=== PATIENT | male | born 1975 | race Caucasian/White ===

== ENCOUNTER 2018-10-09 20:53 | Emergency (ER) | payer BC ==
[2018-10-09] MEDS ORDERED: NA CHLORIDE 0.9% 1,000 ML ONE (21:16)
[2018-10-09 21:21] LABS: Protime INR 0.97
[2018-10-09 21:25] LABS: Absolute Lymphocytes (CBC) 1.6 K/uL (0.7-4.9); Absolute Monocytes 0.7 K/uL (0.1-1.3); Basophils % 0.5 % (0-1.3); Eosinophils % 0.3 % (0-4.4); Hematocrit 47.7 % (39.6-49.0); Lymphocytes % 12.1 % (15.3-44.8); MPV 8.9 fL (7.6-11.3); Monocytes % 5.5 % (3.3-12.3); RBC Red Blood Cell Count 5.16 M/uL (4.33-5.43)
--- NOTE | 2018-10-09 21:35 | RAD REPORT ---
EXAM DESCRIPTION: RAD - Chest Single View - 10/09/2018 9:25 pm CLINICAL HISTORY: Cough;Dyspnea Chest pain. COMPARISON: No comparisons FINDINGS: Portable technique limits examination quality. The lungs are grossly clear. The heart is normal in size. No displaced fractures. IMPRESSION: No acute intrathoracic process suspected.
[2018-10-09 21:39] LABS: Barbiturates NEGATIVE (NEGATIVE); Benzodiazepines NEGATIVE (NEGATIVE); Cocaine NEGATIVE (NEGATIVE); METHAMPHETAM NEGATIVE (NEGATIVE); Methadone NEGATIVE (NEGATIVE); Opiates NEGATIVE (NEGATIVE); Phencyclidine NEGATIVE (NEGATIVE); THC Cannibis NEGATIVE (NEGATIVE)
[2018-10-09 21:50] LABS: Urine Blood NEGATIVE (NEG); Urine Glucose NEGATIVE (NEG); Urine Protein NEGATIVE (NEG); Urine Specific Gravity 1.005 (1.005-1.030)
[2018-10-09 21:53] LABS: ALT/SGPT 30 U/L (12-78); AST/SGOT 18 U/L (15-37); Albumin 4.4 g/dL (3.4-5.0); Alkaline Phosphatase 73 U/L (45-117); BUN Blood Urea Nitrogen 9 mg/dL (7-18); Bicarbonate 26 mmol/L (21-32); Bilirubin Direct < 0.1 mg/dL (0-0.2); Bilirubin Total 0.4 mg/dL (0.2-1.0); Glucose Level 88 mg/dL (74-106); Lipase 163 U/L (73-393); Magnesium 1.9 mg/dL (1.8-2.4); NT PRO-BNP 40 pg/mL (<125); Potassium 3.3 mmol/L (3.5-5.1); Protein, Total 7.7 g/dL (6.4-8.2); Sodium Level 138 mmol/L (136-145); Troponin (Emerg Dept Use Only) < 0.02 ng/mL (0.0-0.045)
--- NOTE | 2018-10-09 22:06 | ER ---
Nurse's Notes [facility] Name: Miguelito Petty Age: 42 yrs Sex: Male : 1975 Arrival Date: 10/09/2018 Time: 20:56 Bed 15 Private MD: Diagnosis: Palpitations;Tobacco abuse counseling;Tobacco use;Essential (primary) hypertension;Hypokalemia Presentation: 10/09 21:00 Presenting complaint: Patient states: heart racing and shortness of breath that started cc3 tonight. Transition of care: patient was not received from another setting of care. Onset of symptoms was October 09, 2018. Risk Assessment: Do you want to hurt yourself or someone else? Patient reports no desire to harm self or others. Initial Sepsis Screen: Does the patient meet any 2 criteria? No. Patient's initial sepsis screen is negative. Does the patient have a suspected source of infection? No. Patient's initial sepsis screen is negative. Care prior to arrival: None. 21:00 Method Of Arrival: Ambulatory cc3 21:00 Acuity: ANTOINETTE 3 cc3 Triage Assessment: 21:00 General: Appears in no apparent distress. uncomfortable, Behavior is calm, cooperative, cc3 appropriate for age. Pain: Denies pain. EENT: No signs and/or symptoms were reported regarding the EENT system. Neuro: Level of Consciousness is awake, alert, obeys commands, Oriented to person, place, time, situation, Appropriate for age. Cardiovascular: Reports palpitations, shortness of breath, Patient's skin is warm and dry. Respiratory: Reports shortness of breath at rest Onset: The symptoms/episode began/occurred suddenly, the patient has mild shortness of breath. GI: Abdomen is round non-distended. : No signs and/or symptoms were reported regarding the genitourinary system. Derm: No signs and/or symptoms reported regarding the dermatologic system. Musculoskeletal: Circulation, motion, and sensation intact. Range of motion: intact in all extremities. Historical: - Allergies: 21:00 No Known Allergies; cc3 - Home Meds: 21:00 Xanax Oral [Active]; cc3 - PMHx: 21:00 Anxiety; cc3 - PSHx: 21:00 throat polyps removal; cc3 - Immunization history:: Adult Immunizations up to date. - Social history:: Smoking status: Patient uses tobacco products, smokes one pack cigarettes per day. - Family history:: not pertinent. - Ebola Screening: : No symptoms or risks identified at this time. Screenin:00 Abuse screen: Denies threats or abuse. Denies injuries from another. Nutritional cc3 screening: No deficits noted. Tuberculosis screening: No symptoms or risk factors identified. Fall Risk Ambulatory Aid- None/Bed Rest/Nurse Assist (0 pts). Gait- Normal/Bed Rest/Wheelchair (0 pts) Mental Status- Oriented to own ability (0 pts). Assessment: 21:00 Cardiovascular: Rhythm is sinus tachycardia. Respiratory: Airway is patent Respiratory cc3 effort is even, unlabored, Respiratory pattern is regular, symmetrical, Breath sounds are clear bilaterally. 22:06 Reassessment: Patient appears in no apparent distress at this time. Patient and/or cc3 family updated on plan of care and expected duration. Pain level reassessed. Patient is alert, oriented x 3, equal unlabored respirations, skin warm/dry/pink. Not yet for discharge, still for medications. 22:41 Reassessment: Patient appears in no apparent distress at this time. Patient and/or cc3 family updated on plan of care and expected duration. Pain level reassessed. Patient is alert, oriented x 3, equal unlabored respirations, skin warm/dry/pink. Dr. Mckeon discharged the patient home with prescription given. IV cannula removed and patient left ER vitally stable and ambulatory with his son. Patient states feeling better. Patient states symptoms have improved. Vital Signs: 21:00 BP 161 / 101; Pulse 112; Resp 21 S; Temp 99.0(O); Pulse Ox 96% on R/A; Weight 81.65 kg cc3 (R); Height 5 ft. 10 in. (177.80 cm) (R); Pain 0/10; 22:13 BP 140 / 94; Pulse 94; Resp 16 S; Pulse Ox 99% on R/A; cc3 21:00 Body Mass Index 25.83 (81.65 kg, 177.80 cm) cc3 ED Course: 20:56 Patient arrived in ED. am2 20:57 Vero Vazquez is Primary Nurse. cc3 20:57 Dequan Mckeon MD is Attending Physician. quinton 21:00 Arm band placed on left wrist. EKG completed in triage. Results shown to MD. cc3 21:00 Patient has correct armband on for positive identification. Placed in gown. Bed in low cc3 position. Call light in reach. Side rails up X 1. phototypesetting equipment monitor on. Pulse ox on. NIBP on. 21:05 Inserted saline lock: 20 gauge in right antecubital area, using aseptic technique. cc3 Blood collected. inserted by GENEVA Matthews. 21:17 Triage completed. cc3 21:32 XRAY Chest (1 view) In Process Unspecified. EDMS 22:11 Tiago Pina MD is Referral Physician. [facility] 22:41 No provider procedures requiring assistance completed. IV discontinued, intact, cc3 bleeding controlled, No redness/swelling at site. Pressure dressing applied. Administered Medications: 21:05 Drug: NS 0.9% 1000 ml Route: IV; Rate: 125 ml/hr; Site: right antecubital; cc3 22:41 Follow up: Response: No adverse reaction; IV Status: Order to discontinue infusion; cc3 patient discharged home 22:12 Drug: Potassium Effervescent Tablet 25 mEq Route: PO; cc3 22:31 Follow up: Response: No adverse reaction cc3 22:30 Drug: Lopressor (metoprolol TARTRATE) 50 mg Route: PO; cc3 22:40 Follow up: Response: No adverse reaction cc3 22:30 Drug: Aspirin 162 mg Route: PO; cc3 22:40 Follow up: Response: No adverse reaction cc3 Intake: Outcome: 22:06 Discharge ordered by . quinton 22:41 Patient left the ED. cc3 22:41 Discharged to home ambulatory, with family. cc3 22:41 Condition: stable 22:41 Discharge instructions given to patient, family, Instructed on discharge instructions, follow up and referral plans. medication usage, Demonstrated understanding of instructions, follow-up care, medications, Prescriptions given X 1. Signatures: Dispatcher [employer] EDMS Dequan Mckeon MD MD cha Moreno, Amanda am2 Cordel, Charlene cc3 Corrections: (The following items were deleted from the chart) 21:15 21:00 BP 161 / 101; Pulse 112bpm; Resp 24bpm; Spontaneous; Pulse Ox 96% RA; Temp 99.0F cc3 Oral; 81.65 kg Reported; Height 5 ft. 10 in. Reported; BMI: 25.8; Pain 0/10; cc3
--- NOTE | 2018-10-09 22:08 | EDPHYS ---
Physician Documentation [facility] Name: Miguelito Petty Age: 42 yrs Sex: Male : 1975 Arrival Date: 10/09/2018 Time: 20:56 Bed 15 Private MD: ED Physician Dequan Mckeon HPI: 10/09 21:02 This 42 yrs old Male presents to ER via Unassigned with complaints of quinton Palpitations, Shortness Of Breath. 21:02 The patient presents with a history of irregular heart beat, heart racing. Context: The quinton symptoms occur at rest, with anxiety, with light activity. Onset: The symptoms/episode began/occurred 1 day(s) ago. Duration: The patient or guardian reports multiple episodes, with no pattern. Modifying factors: The symptoms are aggravated by nothing. The symptoms are alleviated by nothing. Associated signs and symptoms: The patient has no apparent associated signs or symptoms. Severity of symptoms: At their worst the symptoms were mild in the emergency department the symptoms are unchanged. Historical: - Allergies: 21:00 No Known Allergies; cc3 - Home Meds: 21:00 Xanax Oral [Active]; cc3 - PMHx: 21:00 Anxiety; cc3 - PSHx: 21:00 throat polyps removal; cc3 - Immunization history:: Adult Immunizations up to date. - Social history:: Smoking status: Patient uses tobacco products, smokes one pack cigarettes per day. - Family history:: not pertinent. - Ebola Screening: : No symptoms or risks identified at this time. ROS: 21:02 Constitutional: Negative for fever, chills, and weight loss, Eyes: Negative for injury, quinton pain, redness, and discharge, ENT: Negative for injury, pain, and discharge, Neck: Negative for injury, pain, and swelling, Respiratory: Negative for shortness of breath, cough, wheezing, and pleuritic chest pain, Abdomen/GI: Negative for abdominal pain, nausea, vomiting, diarrhea, and constipation, Back: Negative for injury and pain, : Negative for injury, bleeding, discharge, and swelling, MS/Extremity: Negative for injury and deformity, Skin: Negative for injury, rash, and discoloration, Neuro: Negative for headache, weakness, numbness, tingling, and seizure, Psych: Negative for depression, anxiety, suicide ideation, homicidal ideation, and hallucinations, Allergy/Immunology: Negative for hives, rash, and allergies, Endocrine: Negative for neck swelling, polydipsia, polyuria, polyphagia, and marked weight changes, Hematologic/Lymphatic: Negative for swollen nodes, abnormal bleeding, and unusual bruising. 21:02 Cardiovascular: Positive for chest pain. Exam: 21:02 Constitutional: This is a well developed, well nourished patient who is awake, alert, quinton and in no acute distress. Head/Face: Normocephalic, atraumatic. Eyes: Pupils equal round and reactive to light, extra-ocular motions intact. Lids and lashes normal. Conjunctiva and sclera are non-icteric and not injected. Cornea within normal limits. Periorbital areas with no swelling, redness, or edema. ENT: Nares patent. No nasal discharge, no septal abnormalities noted. Tympanic membranes are normal and external auditory canals are clear. Oropharynx with no redness, swelling, or masses, exudates, or evidence of obstruction, uvula midline. Mucous membranes moist. Neck: Trachea midline, no thyromegaly or masses palpated, and no cervical lymphadenopathy. Supple, full range of motion without nuchal rigidity, or vertebral point tenderness. No Meningismus. Chest/axilla: Normal chest wall appearance and motion. Nontender with no deformity. No lesions are appreciated. Cardiovascular: Regular rate and rhythm with a normal S1 and S2. No gallops, murmurs, or rubs. Normal PMI, no JVD. No pulse deficits. Respiratory: Lungs have equal breath sounds bilaterally, clear to auscultation and percussion. No rales, rhonchi or wheezes noted. No increased work of breathing, no retractions or nasal flaring. Abdomen/GI: Soft, non-tender, with normal bowel sounds. No distension or tympany. No guarding or rebound. No evidence of tenderness throughout. Back: No spinal tenderness. No costovertebral tenderness. Full range of motion. Male : Normal genitalia with no discharge or lesions. Skin: Warm, dry with normal turgor. Normal color with no rashes, no lesions, and no evidence of cellulitis. MS/ Extremity: Pulses equal, no cyanosis. Neurovascular intact. Full, normal range of motion. Neuro: Awake and alert, GCS 15, oriented to person, place, time, and situation. Cranial nerves II-XII grossly intact. Motor strength 5/5 in all extremities. Sensory grossly intact. Cerebellar exam normal. Normal gait. Psych: Awake, alert, with orientation to person, place and time. Behavior, mood, and affect are within normal limits. 21:02 Musculoskeletal/extremity: DVT Exam: No signs of deep vein thrombosis. no pain, no swelling, no tenderness, negative Homans' sign noted on exam, no appreciated bluish discoloration, no erythema, no increased warmth. Vital Signs: 21:00 BP 161 / 101; Pulse 112; Resp 21 S; Temp 99.0(O); Pulse Ox 96% on R/A; Weight 81.65 kg cc3 (R); Height 5 ft. 10 in. (177.80 cm) (R); Pain 0/10; 22:13 BP 140 / 94; Pulse 94; Resp 16 S; Pulse Ox 99% on R/A; cc3 21:00 Body Mass Index 25.83 (81.65 kg, 177.80 cm) cc3 MDM: 20:57 Patient medically screened. [facility] 21:04 Data reviewed: vital signs, nurses notes, lab test result(s), EKG, radiologic studies, [facility] CT scan, plain films. 10/09 20:59 Order name: Basic Metabolic Panel; Complete Time: 22: [facility] 10/09 20:59 Order name: CBC with Diff [facility] 10/09 20:59 Order name: LFT's; Complete Time: 22: [facility] 10/09 20:59 Order name: Magnesium; Complete Time: 22: [facility] 10/09 20:59 Order name: NT PRO-BNP; Complete Time: 22: [facility] 10/09 20:59 Order name: PT-INR; Complete Time: 22:00 [facility] 10/09 20:59 Order name: Troponin (emerg Dept Use Only); Complete Time: 22: [facility] 10/09 20:59 Order name: XRAY Chest (1 view); Complete Time: 22: [facility] 10/09 20:59 Order name: Lipase; Complete Time: 22: [facility] 10/09 20:59 Order name: TSH; Complete Time: 22: [facility] 10/09 20:59 Order name: UDS; Complete Time: 22: [facility] 10/09 21:28 Order name: Urine Dipstick--Ancillary (enter results); Complete Time: 22:00 10/09 21:50 Order name: CBC Smear Scan [facility] 10/09 21:54 Order name: T4 Free; Complete Time: 22:09 [facility] 10/09 20:59 Order name: EKG; Complete Time: 21: [facility] 10/09 20:59 Order name: Cardiac monitoring; Complete Time: 21:04 [facility] 10/09 20:59 Order name: EKG - Nurse/Tech; Complete Time: 21: [facility] 10/09 20:59 Order name: IV Saline Lock; Complete Time: 21:11 [facility] 10/09 20:59 Order name: Labs collected and sent; Complete Time: 21: [facility] 10/09 20:59 Order name: O2 Per Protocol; Complete Time: 21: [facility] 10/09 20:59 Order name: O2 Sat Monitoring; Complete Time: 21: [facility] 10/09 20:59 Order name: Urine Dipstick-Ancillary (obtain specimen); Complete Time: 21:42 [facility] 10/09 22:10 Order name: EKG; Complete Time: 22:11 [facility] 10/09 22:10 Order name: EKG - Nurse/Tech; Complete Time: 22:23 [facility] Administered Medications: 21:05 Drug: NS 0.9% 1000 ml Route: IV; Rate: 125 ml/hr; Site: right antecubital; cc3 22:41 Follow up: Response: No adverse reaction; IV Status: Order to discontinue infusion; cc3 patient discharged home 22:12 Drug: Potassium Effervescent Tablet 25 mEq Route: PO; cc3 22:31 Follow up: Response: No adverse reaction cc3 22:30 Drug: Lopressor (metoprolol TARTRATE) 50 mg Route: PO; cc3 22:40 Follow up: Response: No adverse reaction cc3 22:30 Drug: Aspirin 162 mg Route: PO; cc3 22:40 Follow up: Response: No adverse reaction cc3 Disposition: 10/09/18 22:06 Discharged to Home. Impression: Palpitations, Tobacco abuse counseling, Tobacco use, Essential (primary) hypertension, Hypokalemia. - Condition is Stable. - Discharge Instructions: Hypertension, Palpitations, Steps to Quit Smoking, Smoking Hazards, Hypertension, [id number], How to Take Your Blood Pressure, [id number], Aspirin and Your Heart, Palpitations, [id number], Managing Your Hypertension. - Prescriptions for Toprol XL 50 mg Oral Tablet - take 1 tablet by ORAL route once daily; 20 tablet. - Medication Reconciliation Form, Thank You Letter, Antibiotic Education, Prescription Opioid Use form. - Follow up: Private Physician; When: As needed; Reason: Recheck today's complaints, Re-evaluation by your physician. Follow up: Tiago Pina MD; When: 2 - 3 days; Reason: Recheck today's complaints, Continuance of care, Re-evaluation by your physician. - Problem is new. - Symptoms have improved. Signatures: Dispatcher [employer] EDDequan Inman MD MD cha Cordel, Charlene cc3 Corrections: (The following items were deleted from the chart) 22:03 22:02 Fl[facility]. [facility] 22:04 22:04 Fluid [facility]. [facility] 22:12 22:06 10/09/2018 22:06 Discharged to Home. Impression: Palpitations; Tobacco abuse [facility] counseling; Tobacco use; Essential (primary) hypertension. Condition is Stable. Discharge Instructions: Palpitations, Steps to Quit Smoking, Smoking Hazards, Aspirin and Your Heart, Palpitations, Nzua-br-Chat. Prescriptions for Toprol XL 25 mg Oral Tablet - take 1 tablet by ORAL route once daily; 20 tablet. and Forms are Medication Reconciliation Form, Thank You Letter, Antibiotic Education, Prescription Opioid Use. Follow up: Private Physician; When: As needed; Reason: Recheck today's complaints, Re-evaluation by your physician. Problem is new. Symptoms have improved. [facility] 22:41 22:12 10/09/2018 22:06 Discharged to Home. Impression: Palpitations; Tobacco abuse cc3 counseling; Tobacco use; Essential (primary) hypertension; Hypokalemia. Condition is Stable. Discharge Instructions: Palpitations, Steps to Quit Smoking, Smoking Hazards, Aspirin and Your Heart, Palpitations, [id number], Hypertension, Hypertension, [id number], How to Take Your Blood Pressure, Grcc-[id number], Managing Your Hypertension. Prescriptions for Toprol XL 50 mg Oral Tablet - take 1 tablet by ORAL route once daily; 20 tablet. and Forms are Medication Reconciliation Form, Thank You Letter, Antibiotic Education, Prescription Opioid Use. Follow up: Private Physician; When: As needed; Reason: Recheck today's complaints, Re-evaluation by your physician. Follow up: Tiago Pina; When: 2 - 3 days; Reason: Recheck today's complaints, Continuance of care, Re-evaluation by your physician. Problem is new. Symptoms have improved. quinton
[2018-10-09] MEDS ORDERED: POTASSIUM 25 MEQ EFFERV TAB ONE (22:17)
[2018-10-09] MEDS ORDERED: ASPIRIN 81 MG CHEWABLE TABLET ONE (22:37)
[2018-10-09] MEDS ORDERED: METOPROLOL TAR 50 MG TAB ONE (22:37)
[2018-10-09 22:55] LABS: Blood Morphology Comment NOT SEEN (NOT SEEN); Platelet Estimate ADEQ; Urine White Blood Cell Casts OK
--- NOTE | 2018-10-10 11:53 | EKG ---
Test Date: 2018-10-09 Test Time: 22:14:47 Web Master: TRINIDAD MEASUREMENT RESULTS: Intervals: Rate: 85 MN: 138 QRSD: 90 QT: 348 QTc: 414 [place]: P: 44 MN: 138 QRS: 77 T: 30 INTERPRETIVE STATEMENTS: Normal sinus rhythm Normal ECG Compared to ECG 10/09/2018 21:04:09 Sinus tachycardia no longer present Electronically Signed On 10-10-18 11:51:49 GAS ADJUSTER by Tiago Pina
--- NOTE | 2018-10-10 11:53 | EKG ---
Test Date: 2018-10-09 Test Time: 21:04:09 [employer] Supervisor: TRINIDAD MEASUREMENT RESULTS: Intervals: Rate: 110 ID: [id number] QRSD: 90 QT: 332 QTc: 449 [place]: P: 58 ID: [id number] QRS: 81 T: 28 INTERPRETIVE STATEMENTS: Sinus tachycardia Otherwise normal ECG Compared to ECG 09/20/2005 10:07:00 Sinus rhythm no longer present Electronically Signed On 10-10-18 11:51:53 PHYSICS AND ASTRONOMY PROFESSOR by Tiago Pina
== END 2018-10-09 22:41 | disposition home or self-care (01) ==
LOC: ER 20:53
DX: I10 Essential (primary) hypertension (principal); E87.6 Hypokalemia; R00.2 Palpitations; R06.02 Shortness of breath; F41.9 Anxiety disorder, unspecified; F17.210 Nicotine dependence, cigarettes, uncomplicated; Z71.6 Tobacco abuse counseling
CPT/HCPCS: 36415; 71045; 80048; 80076; 80307; 81003; 83690; 83735; 83880; 84439; 84443; 84484; 85025; 85610; 93005; 96360; 96361; 99284; J7030